=== PATIENT | female | born 1995 ===

== ENCOUNTER 2017-03-20 09:36 | Emergency (ER) | payer OTHER ==
[2017-03-20 09:43] VITALS: BMI 19.7
[2017-03-20 09:44] VITALS: BP 119/73; RESP 18; TEMP 97.6; O2SAT 98
--- NOTE | 2017-03-20 11:11 | RAD ---
PROCEDURE: Right Wrist Radiographs. HISTORY: r/o fx COMPARISON: None. FINDINGS: BONES: Normal. No fracture. JOINTS: Normal. No dislocation. SOFT TISSUES: Normal. OTHER FINDINGS: None. IMPRESSION: No evidence of acute fracture or dislocation.
--- NOTE | 2017-03-20 11:11 | RAD ---
PROCEDURE: Radiographs of the Right Forearm HISTORY: r/o fx COMPARISON: None available. TECHNIQUE: Frontal and lateral views obtained. FINDINGS: BONES: No fracture or destructive lesion. JOINT SPACES: Unremarkable. OTHER FINDINGS: None. IMPRESSION: Unremarkable radiographs of the right forearm.
--- NOTE | 2017-03-20 11:12 | RAD ---
PROCEDURE: Radiographs of the right elbow. HISTORY: r/o fx COMPARISON: No prior. FINDINGS: BONES: Normal. No fracture. JOINTS: Normal. No osteoarthritis. SOFT TISSUES: Normal. JOINT EFFUSION: None. OTHER FINDINGS: None. IMPRESSION: No evidence of acute fracture or dislocation.
--- NOTE | 2017-03-20 11:22 | C.PDOC ---
History Of Present Illness 21 yr old female presents to the ER s/p sustaining a fall down the stairs at home this morning. Patient states she tripped and fell down the stairs, landing on the right side. Reports of pain to the right wrist and right elbow. Patient denies head injury, LOC, symptoms prior to the fall, chest pain, SOB, nausea, vomiting, abdominal pain, neck pain, back pain, weakness or numbness. 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 Cardiovascular: Negative for: Chest Pain Respiratory: Negative for: Shortness of Breath Gastrointestinal: Negative for: Nausea, Vomiting, Abdominal Pain Musculoskeletal: Positive for: Other ((+) Right wrist pain. Right elbow pain. ) . Negative for: Neck Pain, Back Pain Neurological: Negative for: Weakness, Numbness Physical Exam - Physical Exam Appears: Well, Non-toxic, No Acute Distress Skin: Warm, Dry Head: Atraumatic, Normacephalic Oral Mucosa: Moist Neck: Normal, Normal ROM, No Midline Cervical Tenderness, No Paracervical Tenderness, Supple Chest: Symmetrical, No Tenderness Cardiovascular: Rhythm Regular, No Murmur Respiratory: Normal Breath Sounds, No Rales, No Rhonchi, No Stridor, No Wheezing Back: Normal Inspection, No CVA Tenderness, No Paraspinal Tenderness Extremity: Capillary Refill (<2), No Deformity, Other (Right Wrist - 0.5 cm abrasion to the medial anterior aspect. Full ROM. Mild tenderness. Right Elbow - Full ROM with mild tenderness to the posterior aspect. ) ED Course And Treatment O2 Sat by Pulse Oximetry: 98 - Other Rad X-Ray - Right Forearm X-Ray: Viewed By Me, Read By Radiologist Interpretation: PROCEDURE: Radiographs of the Right Forearm. HISTORY: r/o fx. COMPARISON: None available. TECHNIQUE: Frontal and lateral views obtained. FINDINGS: BONES: No fracture or destructive lesion. JOINT SPACES: Unremarkable. OTHER FINDINGS: None. IMPRESSION: Unremarkable radiographs of the right forearm. X-Ray - Right Wrist X-Ray: Viewed By Me, Read By Radiologist Interpretation: PROCEDURE: Right Wrist Radiographs. . HISTORY: r/o fx. COMPARISON: None. FINDINGS: BONES: Normal. No fracture. JOINTS: Normal. No dislocation. SOFT TISSUES: Normal. OTHER FINDINGS: None. IMPRESSION: No evidence of acute fracture or dislocation. X-Ray - Right Elbow X-Ray: Viewed By Me, Read By Radiologist Interpretation: PROCEDURE: Radiographs of the right elbow. HISTORY: r/o fx. COMPARISON: No prior. FINDINGS: BONES: Normal. No fracture. JOINTS: Normal. No osteoarthritis. SOFT TISSUES: Normal. JOINT EFFUSION: None. OTHER FINDINGS: None. IMPRESSION: No evidence of acute fracture or dislocation. Medical Decision Making Medical Decision Making: PLAN: * X-Ray - Right Forearm, Right Elbow, Right Wrist * Motrin PO * Tylenol PO Disposition - Disposition Referrals: [facility] Nelda Ricks, [Non-Staff] - Disposition: HOME/ ROUTINE Disposition Time: 11:05 Condition: GOOD Additional Instructions: Thank you for letting us take care of you today. Your provider was Dr. Resendez. You were treated for elbow and wrist pain. The emergency medical care you received today was directed at your acute symptoms. If you were prescribed any medication, please fill it and take as directed. It may take several days for your symptoms to resolve. Return to the Emergency Department if your symptoms worsen, do not improve, or if you have any other problems. Please contact your doctor or call one of the physicians/clinics you have been referred to that are listed on the Patient Visit Information form that is included in your discharge packet. Bring any paperwork you were given at discharge with you along with any medications you are taking to your follow up visit. Our treatment cannot replace ongoing medical care by a primary care provider (PCP) outside of the emergency department. Thank you for allowing the [facility] team to be part of your care today. Follow up with your doctor in 3-4 days for re-evaluation. Prescriptions: Ibuprofen [Motrin] 600 mg PO Q6 PRN #20 tab PRN Reason: Pain, Moderate (4-7) Instructions: Wrist Injury (ED), Elbow Sprain (ED) Forms: Work Excuse - Clinical Impression Clinical Impression: Elbow contusion, Knee contusion - Scribe Statement The provider has reviewed the documentation as recorded by the Scribe Vicenta Wang Provider Attestation: All medical record entries made by the Scribe were at my direction and personally dictated by me. I have reviewed the chart and agree that the record accurately reflects my personal performance of the history, physical exam, medical decision making, and the department course for this patient. I have also personally directed, reviewed, and agree with the discharge instructions and disposition.
[2017-03-20 11:30] VITALS: PULSE 78
== END 2017-03-20 11:30 | disposition home or self-care (01) ==
LOC: C.ER 09:36
DX: S50.01XA Contusion of right elbow, initial encounter (principal); S80.00XA Contusion of unspecified knee, initial encounter; S60.811A Abrasion of right wrist, initial encounter; W10.8XXA Fall (on) (from) other stairs and steps, initial encounter; Y92.008 Other place in unspecified non-institutional (private) residence as the place of occurrence of the external cause